=== PATIENT | male | born 1995 | race Caucasian/White ===

== ENCOUNTER 2016-12-07 09:00 | Inpatient (IN) | payer SELFPAY ==
[~2016-12-07] VITALS: Ht 185.4 cm; Wt 77.1 kg
--- NOTE | ~2016-12-07 | HP ---
Unit #: [id number] #: [id number] Patient: AAKASH CHANDRA [id number] [place] [address] [id number] MR#: [id number] NAME: AAKASH CHANDRA. ROOM: P205 Age: 21 Sex: M Admission Date: 12/07/2016 : 1995 Attending Physician: aSge Mo M.D. Admitting Physician: Sage Mo M.D. Primary Care Physician: Generic Doctor Not In System HISTORY AND PHYSICAL HISTORY OF PRESENT ILLNESS Aakash is a 21 year old admitted to [address] [place] [address] because of his drug use. He shoots heroin. PAST MEDICAL HISTORY Long history of opioid abuse to include IV heroin. PAST SURGICAL HISTORY Nothing reported. ALLERGIES No known drug allergies. SOCIAL HISTORY He smokes 1 pack per day. Denies alcohol. Admits to a long history of illicit substance abuse to include IV heroin. FAMILY HISTORY Medically noncontributory. REVIEW OF SYSTEMS CONSTITUTIONAL: No fever or chills. HEENT: Denies any sore throat, ear pain or runny nose. CARDIOVASCULAR: Denies chest pain, irregular heart rhythm or palpitations. CHEST: Denies shortness of breath or cough. No hemoptysis. GASTROINTESTINAL: Denies nausea, vomiting, diarrhea or chronic constipation. ENDOCRINE: Denies history of increased thirst or urination. No recent significant weight loss or gain. GENITOURINARY: Denies dysuria, frequency, or hematuria. SKIN: Denies any rashes. HEMATOLOGIC: Denies history of increased bleeding or bruising. MUSCULOSKELETAL: Denies any hot, swollen joints. No generalized muscle pain. NEUROLOGIC: Denies problems with vision or speech. No frequent, severe headaches. No numbness, tingling or weakness in any extremities. Denies loss of bladder or bowel control. CURRENT MEDICATIONS Detox protocol. PHYSICAL EXAMINATION GENERAL: Alert, well-nourished, in no apparent distress. Unit #: [id number] #: [id number] Patient: AAKASH CHANDRA VITAL SIGNS: Blood pressure 132/56, heart rate 72, respirations 16, temperature 98.6. WEIGHT: 170. HEIGHT: 6 feet 1 inch. SKIN: Warm and dry without rash or lesion. HEENT: Normocephalic. TMs not viewed. Oral and nasal passages clear. Conjunctivae clear. PERRLA. EOMs intact. NECK: Supple without lymphadenopathy or thyromegaly. HEART: Regular rate and rhythm without murmur. LUNGS: Clear. ABDOMEN: Soft, nontender. : Not done. EXTREMITIES: No evidence of cyanosis, clubbing or edema. Moves all without focal deficit. NEUROLOGICAL: Grossly within normal limits. Cranial Nerves: II: Visual leyva are intact. III, IV AND : Extraocular movements are intact. Pupils are equal, round and reactive to light. V: Facial sensation is grossly normal. VII: Facial movements and expression are normal. VIII: Auditory acuity grossly intact. IX, X: Uvula is midline. Phonation is normal. XI: Patient shrugs shoulders and turns head normally. XII: Tongue protrudes in the midline. Sensory and Motor Function: Sensory and motor sensation is grossly normal. Motor: moves all extremities well. Coordination: Gait is normal. Deep Tendon Reflexes: Intact. IMPRESSION Psychiatric admission. RECOMMENDATIONS PSYCHIATRIC: Per psychiatrist. MEDICAL: See no contraindication to participate in facility's activities. MEDICAL PROGNOSIS Good. MEDICAL CONDITION Stable. Dictated by... Miriam Cr P.A.-C. for Marino Burt/james TD: 12/08/2016 18:48 JOB #: [id number] Unit #: [id number] #: [id number] Patient: AAKASH CHANDRA HISTORY AND PHYSICAL Page 1 of 1 X Miriam Cr HISTORY AND PHYSICAL
--- NOTE | ~2016-12-07 | PN ---
Unit #: [id number] #: [id number] Patient: GOPAL CHANDRA [id number] [facility] [address] [place] [address] [id number] I MR#: [id number] NAME: GOPAL CHANDRA. ROOM: P205 Age: 21 Sex: M Admission Date: 12/07/2016 : 1995 Attending Physician: Sage Mo M.D. Admitting Physician: Sage Mo M.D. Primary Care Physician: Generic Doctor Not In System [facility] PROGRESS NOTES DATE 12/08/2016 DISCUSSION The patient is more active in the therapeutic milieu. He reports that he has been homeless for some time having been expelled from the domicile he had previously shared with family members secondary to his ongoing substance use. He exhibits little in the way of signs or symptoms of withdrawal today. I will ask the patient's social media developer to see him regarding his post discharge treatment options. Dictated by... Sage Mo M.D. CB/james TD: 12/08/2016 12:06 JOB #: [id number] [facility] PROGRESS NOTES Page 1 of 1 X Sage Mo MD X PROGRESS NOTE
--- NOTE | ~2016-12-07 | PA ---
Unit #: [id number] #: [id number] Patient: GOPAL CHANDRA [id number] [facility] [address] [place] [address] [id number] I MR#: [id number] NAME: GOPAL CHANDRA. ROOM: P205 Age: 21 Sex: M Admission Date: 12/07/2016 : 1995 Date of Assessment: 12/07/2016 Attending Physician: Sage Mo M.D. Admitting Physician: Sage Mo M.D. Primary Care Physician: Generic Doctor Not In System PSYCHIATRIC ASSESSMENT IDENTIFYING INFORMATION The patient is a 21-year-old white male admitted to the [address] [place] [address] for opioid and alcohol detox. CHIEF COMPLAINT None given. INFORMANT(S) Chart. Patient cannot be aroused for interview. HISTORY OF PRESENT ILLNESS The patient is a 21-year-old single white male with a history of alcohol and heroin dependence. The patient has been homeless for some time. He had reported no suicidal or homicidal ideation but did state a wish to "get clean and get my life together." The patient was reportedly prescribed Zoloft under the auspices of [facility], but we have been unable to verify the medication at this point. The patient also abuses cannabis and has reported a history of posttraumatic stress disorder. When seen today, the patient is resting comfortably. He is sleeping soundly having been up much of the night and cannot be aroused for interview. PAST PSYCHIATRIC HISTORY As noted previously, the patient is prescribed Zoloft we believer through the auspices of [place]. PAST MEDICAL HISTORY Noncontributory. MEDICATIONS Zoloft. ALLERGIES None reported. FAMILY HISTORY Not obtained. SOCIAL HISTORY The patient is as noted previously currently homeless, and his substance use history is described previously. MENTAL STATUS EXAMINATION Unit #: [id number] #: [id number] Patient: GOPAL CHANDRA Examination at this time revealed the patient to be a soundly sleeping white male with multiple attempts to arouse the patient unsuccessful. ASSETS AND LIABILITIES The patient's assets are to be assessed. Liabilities: Lack of resources. DIAGNOSTIC IMPRESSION 1. Alcohol use disorder. 2. Cannabis use disorder. 3. Opioid use disorder. 4. Posttraumatic stress disorder per the patient's history. TREATMENT PLAN The patient remains hospitalized for safety and stabilization. Routine detoxification protocol to cover both alcohol and opioids has been ordered. The patient's Zoloft will be continued, and no suicide precautions are deemed necessary at this point given the patient's denial of suicidal ideation at the time of admission. ESTIMATED LENGTH OF STAY 3 to 5 days. Dictated by... Sage Mo M.D. Aide TD: 12/07/2016 14:27 JOB #: [id number] PSYCHIATRIC ASSESSMENT Page 1 of 1 X Sage Mo MD X PSYCHIATRIC ASSESSMENT
--- NOTE | ~2016-12-07 | DS ---
Unit #: [id number] #: [id number] Patient: GOPAL CHANDRA [id number] [facility] [address] [place] [address] [id number] I MR#: [id number] NAME: GOPAL CHANDRA. ROOM: [facility][Note 3]5 Age: 21 Sex: M Admission Date: 12/07/2016 : 1995 Discharge Date: 12/09/2016 Attending Physician: Sage Mo M.D. Primary Care Physician: Generic Doctor Not In System DISCHARGE SUMMARY REASON FOR ADMISSION The patient is a 21-year-old single white male, admitted with recurrent abuse of opiates and alcohol. HOSPITAL COURSE The patient was admitted to the [address] [place] [address] unit and placed on routine detoxification protocol covering both opioids and alcohol. His stay in the hospital was a brief and uneventful one. He exhibited little in the way of signs or symptoms of withdrawal. On 12/09/2016, he requested discharge citing that he wished to go to the [facility] for continued treatment and discharge was ordered as per his request. FINAL DIAGNOSES Alcohol use disorder; opioid use disorder. DISPOSITION ON DISCHARGE The patient is discharged on the following medications: Zoloft 100 mg daily for depression. DISCHARGE INSTRUCTIONS No dietary or physical restrictions were placed on the patient at the time of discharge. FOLLOWUP Followup will take place through the auspices of the [facility]. PROGNOSIS The patient's prognosis is considered fair. Dictated by... Sage Mo M.D. CB/bob TD: 12/09/2016 18:42 JOB #: [id number] Unit #: [id number] #: [id number] Patient: GOPAL CHANDRA DISCHARGE SUMMARY Page 1 of 1 X Sage Mo MD X DISCHARGE SUMMARY
== END 2016-12-09 13:00 | disposition home or self-care (01) | DRG 897 ==
LOC: P2S 11:17
PROC: HZ2ZZZZ Detoxification Services for Substance Abuse Treatment (ICD-10-PCS; principal; 2016-12-07)
DX: F10.20 Alcohol dependence, uncomplicated (principal); F11.20 Opioid dependence, uncomplicated; F43.10 Post-traumatic stress disorder, unspecified
CPT/HCPCS: 86592